=== PATIENT | female | born 1955 ===

== ENCOUNTER 2018-11-04 20:01 | Inpatient (IN) | payer BC ==
[~2018-11-04] VITALS: Ht 162.6 cm; Wt 72.6 kg
[2018-11-04] MEDS ORDERED: FORTAMET500 MG PO (20:42)
[2018-11-06] MEDS ORDERED: PROTONIX40 MG PO (11:56)
== END 2018-11-06 12:51 | disposition home or self-care (01) | DRG 392 ==
LOC: ER 20:01 → MEDI 11-05 08:32
PROVIDERS: ADMIT Internal Medicine
PROC: 0DJ08ZZ Inspection of Upper Intestinal Tract, Via Natural or Artificial Opening Endoscopic (ICD-10-PCS; principal; 2018-11-06)
DX: K29.00 Acute gastritis without bleeding (principal); K92.0 Hematemesis; E11.9 Type 2 diabetes mellitus without complications; Z88.0 Allergy status to penicillin